=== PATIENT | male | born 1930 | race Caucasian/White ===

== ENCOUNTER 2016-10-23 10:28 | Inpatient (IN) | payer OTHER, BC ==
[~2016-10-23] VITALS: Ht 172.7 cm; Wt 66.2 kg
[~2016-10-23 10:28] MED LIST: ACETAMINOPHEN325 M1 PO; ALLOPURINOL100 MG PO; AMIODARONE HCL200 MG PO; ARTIFICIAL TEAR15 M1 BOTH EYES; ASPIR-LOW81 MG PO; ASPIRIN81 M1 PO; ATHENOL325 MG PO; ATIVAN0.5 MG PO; ATORVASTATIN CA10 MG PO; ATORVASTATIN CA20 MG PO; Allopurinol PO; BISACODYL5 MG PO; BRETHINE2.5 MG PO; Brethine PO; CALCIUM600 MG PO; CARDIZEM CD,CA120 MG PO; CARDIZEM CD,CA240 MG PO; CARDIZEM CD120 MG PO; CARDIZEM120 MG PO; CARTIA XT240 MG PO; CARVEDILOL3.125 MG PO; CHERATUSSIN AC473 ML PO; CILOSTAZOL100 MG PO; CLEOCIN150 MG PO; CLINDAMYCIN HC150 MG PO; COREG12.5 M1 PO; COREG3.125 M1 PO; COREG6.25 M1 PO; COUMADIN,JANTOVE1 MG PO; COUMADIN5 MG PO; COUMADIN6 MG PO; CYANOCOBALAM1000 MCG PO; Calcium PO; Cardizem CD,Cartia X PO; Cilostazol PO; Coreg PO; Coumadin,Jantoven PO; DIGOX125 MCG PO; DIGOXIN125 MCG PO; DILTIA XT240 MG PO; DIPHENOXYLATE-1 EAC1 PO; DOCUSATE SODIU100 MG PO; DULCOLAX10 MG PR; DULCOLAX5 MG PO; DUONEB 2.5-0.5 M3 ML IH; Dulcolax PO; DuoNeb IH; FLOMAX0.4 MG PO; FLOVENT; FLOVENT 11120 INHALA IH; FLOVENT DISKUS1 DISK IH; FLOVENT IH; FUROSEMIDE20 MG PO; Flagyl PO; Flovent 110 mcg IH; GLUCOSAMINE HCL MC; KLONOPIN0.5 M1 PO; LASIX20 MG PO; LASIX40 MG PO; LEVAQUIN500 MG PO; LEVAQUIN750 MG PO; LEVOFLOXACIN750 MG PO; LIPITOR10 MG PO; LIPITOR20 MG PO; LISINOPRIL2.5 MG PO; LISINOPRIL20 MG PO; LISINOPRIL5 MG PO; LORAZEPAM0.5 MG PO; LOVENOX40 MG/0.4 SC; Lanoxin,Digitek PO; Lasix PO; MICRO-K10 ME2 PO; MILLIPRED DP5 MG PO; MULTAQ400 MG PO; OMEPRAZOLE20 M2 PO; PANTOPRAZOLE SO40 MG PO; PERCOCET 5/31 TABLET PO; PHENERGAN25 MG/ML IV; PLETAL100 MG PO; POLYETHYLENE GL17 GM PO; PRAVASTATIN SOD40 MG PO; PREDNISOLONE PO; PREDNISONE2.5 MG PO; PREDNISONE20 MG PO; PREDNISONE5 MG PO; PRINIVIL5 MG PO; PROTONIX20 MG PO; PROTONIX40 MG PO; PROVENTIL HFA6.7 GM IH; Pletal PO; ROBITUSSIN AC,T10 ML PO; SIMVASTATIN40 M1 PO; Simvastatin PO; TAMSULOSIN HCL0.4 MG PO; TERBUTALINE NG; TERBUTALINE SU2.5 MG PO; THEO-DUR,THEOC300 MG PO; THEOPHYLLINE A300 M1 PO; THERAGRAN1 TABLET PO; TYLENOL REGULA325 MG PO; Theo-Dur,Theocron PO; VENTOLIN HFA18 GM IH; WARFARIN PO; XARELTO10 MG PO; XARELTO15 MG PO; ZESTRIL20 MG PO; ZITHROMAX250 MG PO; ZOFRAN4 MG PO; ZYLOPRIM100 MG PO; Zestril,Prinivil PO
[2016-10-23 11:33] LABS: HEMATOCRIT 27.4 % (38.0-50.0); MCHC 32.5 G/DL (30.0-36.0); MEAN PLAT.VOLUME 10.4 uM^3 (9.0-12.4); PLATELET COUNT 336 K/uL (156-360); RBC DIS.WIDTH-CV 16.6 % (11.8-14.6); RBC DIS.WIDTH-SD 48.7 % (39-53); WHITE BLOOD COUNT 7.8 K/uL (4.1-10.2)
[2016-10-23 11:37] LABS: EOSINOPHIL (%) 3.3 % (0-5); EOSINOPHIL COUNT 0.3 K/uL (0-0.3); IMMATURE GRANULOCYTE (%) 0.1 % (0.0-0.7); IMMATURE GRANULOCYTE COUNT 0.1 K/uL; LYMPHOCYTE COUNT 1.2 K/uL (1.0-2.8); MONOCYTE COUNT 0.7 K/uL (0-0.8); NEUTROPHIL (%) 72.4 % (45-76); NEUTROPHIL COUNT 5.6 K/uL (1.8-6.4)
[2016-10-23 11:44] LABS: CHLORIDE 108 mEq/L (99-109); POTASSIUM 4.4 mEq/L (3.7-5.4); SODIUM 139 mEq/L (136-147)
[2016-10-23 11:46] LABS: GLUCOSE 103 mg/dL (70-99)
[2016-10-23 11:47] LABS: ANION GAP 10 MEQ/L (2-14)
[2016-10-23 11:48] LABS: TOTAL BILIRUBIN 0.6 mg/dL (0.0-1.0)
[2016-10-23 11:49] LABS: ALKALINE PHOSPHATASE 91 IU/L (3-129)
[2016-10-23 11:50] LABS: GFR ESTIMATE (CALCULATED) > 59 mL/min/
[2016-10-23 11:51] LABS: UREA NITROGEN (BUN) 33 mg/dL (9-23)
[2016-10-23 11:52] LABS: TROP-I INTERPRETATION NEGATIVE; TROPONIN-I 0.02 ng/mL (0.0-0.30)
[2016-10-23 13:26] LABS: ADD MIUA? NO; BILIRUBIN NEGATIVE; BLOOD NEGATIVE; COLOR YELLOW ((YELLOW)); GLUCOSE (STRIP) NEGATIVE; KETONES NEGATIVE; LEUKOCYTES NEGATIVE; NITRITE NEGATIVE; PH, URINE 5.5 (5-8); PROTEIN (STRIP) NEGATIVE; SPECIFIC GRAVITY 1.019 (1.000-1.030); UCUL ADDED? NO; UROBILINOGEN 0.2 MG/DL (0.2-1.0)
[2016-10-23] MEDS ORDERED: COL-RITE100 M1 PO (16:15)
[2016-10-23] MEDS ORDERED: CARDIZEM CD,CA120 MG PO (16:15)
[2016-10-23] MEDS ORDERED: FLOVENT DISKUS1 DIS1 IH (16:16)
[2016-10-23] MEDS ORDERED: THERA-M1 EACH PO (16:17)
[2016-10-23] MEDS ORDERED: MIRALAX255 GM PO (16:18)
[2016-10-23] MEDS ORDERED: DUONEB 2.5-0.5 M3 ML AEROSOL (16:20)
[2016-10-23] MEDS ORDERED: IRON325 M1 PO (16:21)
[2016-10-23] MEDS ORDERED: AQUAPHOR OINTM105 GM TP (16:21)
[2016-10-23] MEDS ORDERED: CITALOPRAM HBR10 MG PO (16:21)
[2016-10-23] MEDS ORDERED: BUSPAR5 MG PO (16:21)
[2016-10-23] MEDS ORDERED: ASCORBIC ACID500 M3 PO (16:21)
[2016-10-23] MEDS ORDERED: MELATIN3 MG PO (16:22)
[2016-10-23] MEDS ORDERED: PHENERGAN25 MG/ML IM (16:22)
[2016-10-23 17:43] VITALS: BP 139/63
[2016-10-23 20:01] VITALS: BP 140/72
[2016-10-23 20:25] LABS: METH RESISTANT S AUREUS PCR NEGATIVE (NEGATIVE)
[2016-10-23 20:46] LABS: PROBE CHECK PASS; SPECIMEN PROCESSING CONTROL PASS
[2016-10-23 23:57] VITALS: BP 161/60
[2016-10-24 03:42] VITALS: BP 126/63
[2016-10-24 06:03] LABS: HEMATOCRIT 25.2 % (38.0-50.0); MCH 26.9 PG (29.0-34.0); MCHC 32.1 G/DL (30.0-36.0); MCV 83.7 FL (86-99); MEAN PLAT.VOLUME 10.2 uM^3 (9.0-12.4); PLATELET COUNT 319 K/uL (156-360); RBC DIS.WIDTH-CV 16.9 % (11.8-14.6); RBC DIS.WIDTH-SD 51.7 % (39-53); RED BLOOD COUNT 3.01 M/uL (4.00-5.50); WHITE BLOOD COUNT 6.3 K/uL (4.1-10.2)
[2016-10-24 06:47] LABS: ANION GAP 8 MEQ/L (2-14); CHLORIDE 108 MEQ/L (99-109); GFR ESTIMATE (CALCULATED) > 59 mL/min/; GLUCOSE 96 mg/dL (70-99); POTASSIUM 4.2 MEQ/L (3.7-5.4); SAMPLE HEMOLYSIS CHECK 0; SAMPLE ICTERIC CHECK 0; SAMPLE LIPEMIA CHECK 0; SODIUM 139 MEQ/L (136-147); UREA NITROGEN (BUN) 15 mg/dL (9-23)
[2016-10-24 07:57] VITALS: BP 146/106
[2016-10-24 11:32] VITALS: BP 128/58
[2016-10-24 15:39] VITALS: BP 124/57
[2016-10-24 19:20] VITALS: BP 142/75
[2016-10-24 23:30] VITALS: BP 113/75
[2016-10-25 04:07] VITALS: BP 112/72
[2016-10-25 04:38] LABS: EOSINOPHIL (%) 1.3 % (0-5); EOSINOPHIL COUNT 0.1 K/uL (0-0.3); HEMATOCRIT 27.4 % (38.0-50.0); IMMATURE GRANULOCYTE (%) 0.2 % (0.0-0.7); IMMATURE GRANULOCYTE COUNT 0.2 K/uL; LYMPHOCYTE COUNT 0.9 K/uL (1.0-2.8); MCH 26.7 PG (29.0-34.0); MCHC 32.1 G/DL (30.0-36.0); MCV 83.3 FL (86-99); MEAN PLAT.VOLUME 9.7 uM^3 (9.0-12.4); MONOCYTE (%) 5.8 % (3-12); MONOCYTE COUNT 0.5 K/uL (0-0.8); NEUTROPHIL (%) 82.4 % (45-76); NEUTROPHIL COUNT 7.6 K/uL (1.8-6.4); PLATELET COUNT 338 K/uL (156-360); RBC DIS.WIDTH-CV 16.3 % (11.8-14.6); RBC DIS.WIDTH-SD 47.9 % (39-53); RED BLOOD COUNT 3.29 M/uL (4.00-5.50)
[2016-10-25 04:39] LABS: WHITE BLOOD COUNT 9.2 K/uL (4.1-10.2)
[2016-10-25 04:45] LABS: CHLORIDE 105 mEq/L (99-109); SODIUM 135 mEq/L (136-147)
[2016-10-25 04:47] LABS: GLUCOSE 117 mg/dL (70-99)
[2016-10-25 04:48] LABS: ANION GAP 9 MEQ/L (2-14)
[2016-10-25 04:51] LABS: GFR ESTIMATE (CALCULATED) > 59 mL/min/
[2016-10-25 04:52] LABS: UREA NITROGEN (BUN) 10 mg/dL (9-23)
[2016-10-25 04:59] LABS: DIGOXIN 0.6 ng/mL (0.8-2.0)
[2016-10-25 08:09] VITALS: BP 197/90
[2016-10-25 12:00] VITALS: BP 134/65
[2016-10-25 15:18] LABS: C DIFF TOXIN NEGATIVE (NEGATIVE)
[2016-10-25 15:21] LABS: PROBE CHECK PASS; SPECIMEN PROCESSING CONTROL PASS
[2016-10-25] MEDS ORDERED: A&D OINTMENT60 GM TP (15:47)
== END 2016-10-25 18:10 | DRG 92 ==
LOC: EME 10:28 → EDOF 15:22 → 4EAST 15:22
PROVIDERS: Emergency Medicine; Hospitalist; Internal Medicine; Physician Assistant Medical
DX: R29.6 Repeated falls (principal); I42.9 Cardiomyopathy, unspecified; Z91.81 History of falling; E86.0 Dehydration; I95.1 Orthostatic hypotension; S01.01XA Laceration without foreign body of scalp, initial encounter; S30.813A Abrasion of scrotum and testes, initial encounter; W19.XXXA Unspecified fall, initial encounter; Y92.129 Unspecified place in nursing home as the place of occurrence of the external cause; I11.0 Hypertensive heart disease with heart failure; I50.9 Heart failure, unspecified; I48.2 Chronic atrial fibrillation; J44.9 Chronic obstructive pulmonary disease, unspecified; I73.9 Peripheral vascular disease, unspecified; D64.9 Anemia, unspecified; G30.9 Alzheimer's disease, unspecified; F02.80 Dementia in other diseases classified elsewhere, unspecified severity, without behavioral disturbance, psychotic disturbance, mood disturbance, and anxiety; F01.50 Vascular dementia, unspecified severity, without behavioral disturbance, psychotic disturbance, mood disturbance, and anxiety; Z85.46 Personal history of malignant neoplasm of prostate
CPT/HCPCS: 70450; 71010; 72125; 80048; 80053; 80162; 81003; 84484; 85025; 85027; 87493; 87641; 93005; 94640; 94640 76; 99202; 99281; 99285; J1644; J7030; J7512

== ENCOUNTER 2016-11-02 17:31 | Inpatient (IN) | payer OTHER, BC ==
[~2016-11-02] VITALS: Ht 172.7 cm; Wt 65.2 kg
[~2016-11-02 17:31] MED LIST changes: +A&D OINTMENT60 GM TP; +AQUAPHOR OINTM105 GM TP; +ASCORBIC ACID500 M3 PO; +BUSPAR5 MG PO; +CITALOPRAM HBR10 MG PO; +COL-RITE100 M1 PO; +DUONEB 2.5-0.5 M3 ML AEROSOL; +FLOVENT DISKUS1 DIS1 IH; +IRON325 M1 PO; +MELATIN3 MG PO; +MIRALAX255 GM PO; +PHENERGAN25 MG/ML IM; +THERA-M1 EACH PO
[2016-11-02 18:22] LABS: HEMATOCRIT 30.3 % (38.0-50.0); MCH 26.8 PG (29.0-34.0); MCHC 32.7 G/DL (30.0-36.0); MCV 82.1 FL (86-99); RBC DIS.WIDTH-CV 16.6 % (11.8-14.6); RBC DIS.WIDTH-SD 48.4 % (39-53); RED BLOOD COUNT 3.69 M/uL (4.00-5.50); WHITE BLOOD COUNT 11.9 K/uL (4.1-10.2)
[2016-11-02 18:25] LABS: EOSINOPHIL (%) 0.3 % (0-5); IMMATURE GRANULOCYTE (%) 0.3 % (0.0-0.7); IMMATURE GRANULOCYTE COUNT 0.4 K/uL; LYMPHOCYTE COUNT 0.8 K/uL (1.0-2.8); MEAN PLAT.VOLUME 10.1 uM^3 (9.0-12.4); MONOCYTE (%) 4.4 % (3-12); MONOCYTE COUNT 0.5 K/uL (0-0.8); NEUTROPHIL (%) 87.7 % (45-76); NEUTROPHIL COUNT 10.4 K/uL (1.8-6.4); PLATELET COUNT 460 K/uL (156-360)
[2016-11-02 18:31] LABS: CHLORIDE 106 mEq/L (99-109); POTASSIUM 4.8 mEq/L (3.7-5.4); SODIUM 140 mEq/L (136-147)
[2016-11-02 18:33] LABS: GLUCOSE 148 mg/dL (70-99)
[2016-11-02 18:34] LABS: ANION GAP 13 MEQ/L (2-14)
[2016-11-02 18:36] LABS: GFR ESTIMATE (CALCULATED) > 59 mL/min/
[2016-11-02 18:37] LABS: UREA NITROGEN (BUN) 25 mg/dL (9-23)
[2016-11-02 18:58] LABS: ADD MIUA? NO; BILIRUBIN NEGATIVE; BLOOD NEGATIVE; COLOR DK YELLOW ((YELLOW)); GLUCOSE (STRIP) NEGATIVE; KETONES NEGATIVE; LEUKOCYTES NEGATIVE; NITRITE NEGATIVE; PROTEIN (STRIP) TRACE; SPECIFIC GRAVITY 1.026 (1.000-1.030); UROBILINOGEN 0.2 MG/DL (0.2-1.0)
[2016-11-02 19:00] LABS: UCUL ADDED? NO
[2016-11-02] MEDS ORDERED: THERA1 EAC1 PO (21:46)
[2016-11-02] MEDS ORDERED: COUGH SYRU100 MG/5 M PO (21:49)
[2016-11-02 22:16] LABS: INFLUENZA A VIRAL ANTIGEN NEGATIVE; INFLUENZA B VIRAL ANTIGEN NEGATIVE
[2016-11-03 02:10] VITALS: BP 150/86
[2016-11-03 06:18] LABS: TROP-I INTERPRETATION NEGATIVE; TROPONIN-I 0.03 ng/mL (0.0-0.30)
[2016-11-03 08:00] VITALS: BP 169/78
[2016-11-03 12:31] VITALS: BP 171/71
[2016-11-03 12:40] LABS: TROP-I INTERPRETATION NEGATIVE; TROPONIN-I 0.03 ng/mL (0.0-0.30)
[2016-11-03 16:00] VITALS: BP 124/84
[2016-11-03 18:33] LABS: TROP-I INTERPRETATION NEGATIVE; TROPONIN-I 0.02 ng/mL (0.0-0.30)
[2016-11-03 20:22] VITALS: BP 138/77
[2016-11-04 00:07] VITALS: BP 169/82
[2016-11-04 04:43] VITALS: BP 164/77
[2016-11-04 06:24] LABS: ANION GAP 11 MEQ/L (2-14); CHLORIDE 103 MEQ/L (99-109); GFR ESTIMATE (CALCULATED) > 59 mL/min/; POTASSIUM 4.1 MEQ/L (3.7-5.4); SAMPLE HEMOLYSIS CHECK 0; SAMPLE ICTERIC CHECK 0; SAMPLE LIPEMIA CHECK 0; SODIUM 140 MEQ/L (136-147); UREA NITROGEN (BUN) 9 mg/dL (9-23)
[2016-11-04 06:31] LABS: GLUCOSE 73 mg/dL (70-99)
[2016-11-04 06:42] LABS: HEMATOCRIT 27.6 % (38.0-50.0); MCH 26.1 PG (29.0-34.0); MCHC 31.5 G/DL (30.0-36.0); MCV 82.9 FL (86-99); MEAN PLAT.VOLUME 9.7 uM^3 (9.0-12.4); PLATELET COUNT 396 K/uL (156-360); RBC DIS.WIDTH-CV 16.3 % (11.8-14.6); RBC DIS.WIDTH-SD 49.8 % (39-53); RED BLOOD COUNT 3.33 M/uL (4.00-5.50)
[2016-11-04 06:45] LABS: WHITE BLOOD COUNT 8.3 K/uL (4.1-10.2)
[2016-11-04 08:00] VITALS: BP 159/71
[2016-11-04 11:03] LABS: BASE EXCESS 3.1 mEq/L (-3 to +3); BICARBONATE 26.9 mEq/L (22-26); CARBOXY HGB 1.9 % (0-5); COMMENTS - BLOOD GASES A+C+; DEVICE NC; METHEMOGLOBIN 1.5 % (0-1.5); O2 FLOW 2 L/MIN; PCO2 37 mm Hg (35-45); PO2 75 mm Hg (80-100); SITE LR; TOTAL RESP RATE 20 resp/min; pH 7.47 (7.35-7.45)
[2016-11-04 12:00] VITALS: BP 137/64
[2016-11-04 16:00] VITALS: BP 139/63
[2016-11-04 19:30] VITALS: BP 132/59
[2016-11-05 00:17] VITALS: BP 150/65
[2016-11-05 04:56] VITALS: BP 128/60
[2016-11-05 08:12] VITALS: BP 117/72
[2016-11-05 11:56] VITALS: BP 120/74
[2016-11-05] MEDS ORDERED: COREG3.125 M1 PO (13:34)
== END 2016-11-05 15:00 | DRG 309 ==
LOC: EXP 17:31 → EDOF 11-03 00:59 → 5WEST 11-03 02:08
PROVIDERS: Emergency Medicine; Hospitalist; Nurse Practitioner Family
DX: I48.91 Unspecified atrial fibrillation (principal); R41.82 Altered mental status, unspecified; E87.2 Acidosis; I42.9 Cardiomyopathy, unspecified; E86.0 Dehydration; F02.80 Dementia in other diseases classified elsewhere, unspecified severity, without behavioral disturbance, psychotic disturbance, mood disturbance, and anxiety; G30.9 Alzheimer's disease, unspecified; D72.829 Elevated white blood cell count, unspecified; I10 Essential (primary) hypertension; K21.9 Gastro-esophageal reflux disease without esophagitis; Z88.0 Allergy status to penicillin; Z88.1 Allergy status to other antibiotic agents; Z88.2 Allergy status to sulfonamides; Z51.5 Encounter for palliative care; Z86.73 Personal history of transient ischemic attack (TIA), and cerebral infarction without residual deficits; Z85.46 Personal history of malignant neoplasm of prostate
CPT/HCPCS: 36600; 70450; 71010; 80048; 81003; 82803; 83605; 84484; 85025; 85027; 87040; 87502; 92610 GN; 93005; 94640; 94640 76; 94799; 99202; 99281; 99285; J1644; J7030; J7512